=== PATIENT | female | born 1990 ===

== ENCOUNTER 2021-03-31 13:54 | Emergency (ER) | END 2021-03-31 14:15 | disposition left against medical advice (07) | LOC: COL.ER 13:54 | DX: R69 Illness, unspecified (principal) ==

== ENCOUNTER 2021-03-31 15:02 | Emergency (ER) | END 2021-03-31 15:17 | disposition left against medical advice (07) | LOC: COL.ER 15:02 | DX: R52 Pain, unspecified (principal) ==